=== PATIENT | female | born 1985 | race Caucasian/White ===

== ENCOUNTER 2017-09-18 19:50 | Emergency (ER) | payer MEDICAID ==
[2017-09-18] MEDS: ACETAMINOPHEN 500 MG TAB PO (22:34)
[2017-09-18] MEDS: ONDANSETRON (ODT) 4 MG TAB ODT (22:34)
[2017-09-18 22:52] LABS: ADD MAN DIFF? NO
[2017-09-18 22:53] LABS: WHITE BLOOD COUNT 5.5 10^3/ul (4.8-10.8)
[2017-09-18 22:53] LABS: BASOPHILS % 0.2 % (0.0-2.0); HEMATOCRIT 40.1 % (37.0-47.0); HEMOGLOBIN 13.2 g/dl (12.0-16.0); LYMPHOCYTES # 1.2 10^3/ul (0.8-2.9); LYMPHOCYTES % 22.4 % (15.0-51.0); MEAN CORPUSCULAR HEMOGLOBIN 25.7 pg (29.0-33.0); MEAN CORPUSCULAR HGB CONC 32.9 g/dl (32.0-37.0); MEAN PLATELET VOLUME 10.9 fl (7.4-10.4); MONOCYTE # 0.3 10^3/ul (0.3-0.9); MONOCYTES % 4.7 % (0.0-11.0); NEUTROPHILS % 72.5 % (39.0-77.0); PLATELET COUNT 186 10^3/UL (140-415); RED BLOOD COUNT 5.14 10^6/ul (4.20-5.40); RED CELL DISTRIBUTION WIDTH 15.6 % (11.5-14.5)
[2017-09-18 23:25] LABS: ALANINE AMINOTRANSFERASE 58 IU/L (13-69); ALBUMIN 4.6 g/dl (3.3-4.9); ALBUMIN/GLOBULIN RATIO 1.35; ALKALINE PHOSPHATASE 85 IU/L (42-121); AMYLASE 59 U/L (11-123); ANION GAP 19 (8-16); ASPARTATE AMINO TRANSFERASE 50 IU/L (15-46); BLOOD UREA NITROGEN 6 mg/dl (7-20); CALCIUM 8.3 mg/dl (8.4-10.2); CARBON DIOXIDE 22 mmol/L (21-31); CHLORIDE 98 mmol/L (97-110); CREATININE 0.64 mg/dl (0.44-1.00); GLUCOSE 118 mg/dl (70-220); LIPASE 95 U/L (23-300); POTASSIUM 3.6 mmol/L (3.5-5.1); SODIUM 135 mmol/L (135-144)
[2017-09-18 23:44] LABS: ADD UMIC YES; UR ASCORBIC ACID 20 mg/dL (NEGATIVE); UR BACTERIA FEW /HPF (NONE SEEN); UR BILIRUBIN (Dip) NEGATIVE (NEGATIVE); UR BLOOD (Dip) NEGATIVE (NEGATIVE); UR CLARITY SLIGHTLY CLOUDY (CLEAR); UR COLOR YELLOW (YELLOW); UR GLUCOSE (Dip) NEGATIVE (NEGATIVE); UR KETONES (Dip) 2+ mg/dL (NEGATIVE); UR LEUKOCYTE ESTERASE (Dip) TRACE Leu/ul (NEGATIVE); UR NITRITE (Dip) NEGATIVE (NEGATIVE); UR RBC 20 /HPF (0-5); UR SPECIFIC GRAVITY (Dip) 1.019 (1.003-1.030); UR SQUAMOUS EPITHELIAL CELL FEW /HPF (FEW); UR TOTAL PROTEIN (Dip) 2+ mg/dl (NEGATIVE); UR UROBILINOGEN (Dip) 1+ mg/dL (NEGATIVE); UR WBC 3 /HPF (0-5)
== END 2017-09-19 01:10 | disposition home or self-care (01) ==
LOC: FTE 09-19 01:10
DX: J18.9 Pneumonia, unspecified organism (principal); K80.20 Calculus of gallbladder without cholecystitis without obstruction; F17.210 Nicotine dependence, cigarettes, uncomplicated
CPT/HCPCS: 71046; 76705; 80053; 81001; 82150; 83690; 85025; 87086; 87400; 99285-25

== ENCOUNTER 2018-05-04 23:34 | Emergency (ER) | payer OTHER, MEDICAID ==
[2018-05-05 03:55] LABS: ADD UMIC YES; UR ASCORBIC ACID NEGATIVE (NEGATIVE); UR BACTERIA FEW /HPF (NONE SEEN); UR BILIRUBIN (Dip) NEGATIVE (NEGATIVE); UR BLOOD (Dip) 3+ mg/dL (NEGATIVE); UR CLARITY CLEAR (CLEAR); UR COLOR YELLOW (YELLOW); UR GLUCOSE (Dip) NEGATIVE (NEGATIVE); UR KETONES (Dip) NEGATIVE (NEGATIVE); UR LEUKOCYTE ESTERASE (Dip) TRACE Leu/ul (NEGATIVE); UR NITRITE (Dip) NEGATIVE (NEGATIVE); UR RBC 3 /HPF (0-5); UR SPECIFIC GRAVITY (Dip) 1.013 (1.003-1.030); UR SQUAMOUS EPITHELIAL CELL FEW /HPF (FEW); UR TOTAL PROTEIN (Dip) NEGATIVE (NEGATIVE); UR UROBILINOGEN (Dip) NEGATIVE (NEGATIVE); UR WBC 1 /HPF (0-5)
[2018-05-05 04:15] LABS: HEMATOCRIT 34.2 % (37.0-47.0); HEMOGLOBIN 10.7 g/dl (12.0-16.0); MEAN CORPUSCULAR HEMOGLOBIN 24.2 pg (29.0-33.0); MEAN CORPUSCULAR HGB CONC 31.3 g/dl (32.0-37.0); MEAN CORPUSCULAR VOLUME 77.2 fl (82.0-101.0); MEAN PLATELET VOLUME 12.1 fl (7.4-10.4); RED BLOOD COUNT 4.43 10^6/ul (4.20-5.40); RED CELL DISTRIBUTION WIDTH 16.7 % (11.5-14.5)
[2018-05-05 04:15] LABS: WHITE BLOOD COUNT 13.4 10^3/ul (4.8-10.8)
[2018-05-05 04:43] LABS: PLATELET COUNT 235 10^3/UL (140-415); POSITIVE DIFF @See below
[2018-05-05 04:49] LABS: ADD MAN DIFF? YES
[2018-05-05 06:05] LABS: ANISOCYTOSIS 1+ (0-0); BAND NEUTROPHILS #M 0.1 10^3/ul (0.0-0.6); BAND NEUTROPHILS % (M) 1 % (0-4); EOSINOPHILS % (M) 4 % (0-7); GIANT THROMBO% (M) 1 % (0-0); LYMPHOCYTES #M 4.4 10^3/ul (0.8-2.9); LYMPHOCYTES % (M) 33 % (15-51); MICROCYTOSIS 1+ (0-0); MONOCYTE #M 0.8 10^3/ul (0.3-0.9); MONOCYTES % (M) 6 % (0-11); PLATELET ESTIMATE NORMAL; POIKILOCYTOSIS 2+ (0-0); SEG NEUT #M 7.5 10^3/ul (1.6-7.5); SEGMENTED NEUTROPHILS (M) % 56 % (39-77); SMUDGE%M 70 % (0-0)
== END 2018-05-05 05:07 | disposition home or self-care (01) ==
LOC: FTE 23:34
DX: O20.9 Hemorrhage in early pregnancy, unspecified (principal); R10.2 Pelvic and perineal pain; F17.210 Nicotine dependence, cigarettes, uncomplicated; O99.331 Smoking (tobacco) complicating pregnancy, first trimester; O10.011 Pre-existing essential hypertension complicating pregnancy, first trimester; Z3A.01 Less than 8 weeks gestation of pregnancy
CPT/HCPCS: 36415; 76801; 81001; 84702; 85025; 86900; 86901; 99284-25

== ENCOUNTER 2018-10-28 10:16 | Outpatient (CLI) | payer OTHER ==
[2018-10-28 11:50] LABS: ADD MAN DIFF? NO
[2018-10-28 11:53] LABS: BASOPHILS % 0.3 % (0.0-2.0); EOSINOPHILS # 0.1 10^3/ul (0.0-0.5); HEMOGLOBIN 11.6 g/dl (12.0-16.0); LYMPHOCYTES # 2.1 10^3/ul (0.8-2.9); MEAN CORPUSCULAR HEMOGLOBIN 25.6 pg (29.0-33.0); MEAN CORPUSCULAR HGB CONC 32.2 g/dl (32.0-37.0); MEAN CORPUSCULAR VOLUME 79.3 fl (82.0-101.0); MEAN PLATELET VOLUME 10.4 fl (7.4-10.4); MONOCYTE # 0.6 10^3/ul (0.3-0.9); MONOCYTES % 4.9 % (0.0-11.0); NEUTROPHILS % 76.6 % (39.0-77.0); PLATELET COUNT 301 10^3/UL (140-415); RED BLOOD COUNT 4.54 10^6/ul (4.20-5.40); RED CELL DISTRIBUTION WIDTH 15.9 % (11.5-14.5)
[2018-10-28 12:10] LABS: ALANINE AMINOTRANSFERASE 10 IU/L (13-69); ALBUMIN 3.9 g/dl (3.3-4.9); ALBUMIN/GLOBULIN RATIO 1.14; ALKALINE PHOSPHATASE 99 IU/L (42-121); ANION GAP 7 (5-13); ASPARTATE AMINO TRANSFERASE 18 IU/L (15-46); BLOOD UREA NITROGEN 7 mg/dl (7-20); CALCIUM 9.2 mg/dl (8.4-10.2); CARBON DIOXIDE 26 mmol/L (21-31); CHLORIDE 103 mmol/L (97-110); CREATININE 0.55 mg/dl (0.44-1.00); Estimated GFR > 60 mL/min (>60); GLUCOSE 95 mg/dl (70-220); POTASSIUM 3.5 mmol/L (3.5-5.1); SODIUM 136 mmol/L (135-144); TOTAL PROTEIN 7.3 g/dl (6.1-8.1)
[2018-10-28 12:14] LABS: INR 0.89; PROTIME 12.1 Sec (11.9-14.9); PT RATIO 0.9
[2018-10-28 12:15] LABS: PARTIAL THROMBOPLASTIN TIME 24.3 Sec (23.0-35.0)
[2018-10-28 12:16] LABS: ADD UMIC YES; UR ASCORBIC ACID NEGATIVE (NEGATIVE); UR BACTERIA FEW /HPF (NONE SEEN); UR BILIRUBIN (Dip) NEGATIVE (NEGATIVE); UR BLOOD (Dip) NEGATIVE (NEGATIVE); UR CLARITY SLIGHTLY CLOUDY (CLEAR); UR COLOR YELLOW (YELLOW); UR GLUCOSE (Dip) NEGATIVE (NEGATIVE); UR KETONES (Dip) NEGATIVE (NEGATIVE); UR LEUKOCYTE ESTERASE (Dip) 3+ Leu/ul (NEGATIVE); UR MUCUS FEW /HPF (NONE SEEN); UR NITRITE (Dip) NEGATIVE (NEGATIVE); UR RBC 15 /HPF (0-5); UR SPECIFIC GRAVITY (Dip) 1.018 (1.003-1.030); UR SQUAMOUS EPITHELIAL CELL MANY /HPF (FEW); UR TOTAL PROTEIN (Dip) NEGATIVE (NEGATIVE); UR UROBILINOGEN (Dip) 1+ mg/dL (NEGATIVE); UR WBC 3 /HPF (0-5)
[2018-10-28 12:24] LABS: URIC ACID 3.4 mg/dl (3.1-7.9)
== END 2018-10-28 13:30 | disposition home or self-care (01) ==
LOC: OBT 10:16 → L-D 12:00 → OBT 13:30
DX: O13.3 Gestational [pregnancy-induced] hypertension without significant proteinuria, third trimester (principal); Z3A.37 37 weeks gestation of pregnancy
CPT/HCPCS: 76818; 80053; 81001; 84560; 85025; 85384; 85610; 85730

== ENCOUNTER 2018-12-14 09:38 | Inpatient (IN) | payer OTHER ==
[2018-12-14] MEDS ORDERED: METHYLERGONOVINE 0.2 MG INJ IM (10:30)
[2018-12-14] MEDS ORDERED: OXYTOCIN 30 UNITS/LR 500 ML IV (10:30)
[2018-12-14] MEDS: MINERAL OIL LIGHT 10 ML VIAL TOP (10:30)
[2018-12-14] MEDS ORDERED: BUTORPHANOL 2 MG INJ IV (10:30)
[2018-12-14] MEDS ORDERED: LIDOCAINE 1% (MPF) 30 ML INJ INJ (10:30)
[2018-12-14] MEDS ORDERED: CARBOPROST 250 MCG INJ IM (10:30)
[2018-12-14 10:49] LABS: ADD MAN DIFF? NO
[2018-12-14 11:01] LABS: BASOPHILS % 0.3 % (0.0-2.0); EOSINOPHILS # 0.1 10^3/ul (0.0-0.5); EOSINOPHILS % 0.7 % (0.0-7.0); HEMATOCRIT 34.3 % (37.0-47.0); HEMOGLOBIN 11.1 g/dl (12.0-16.0); LYMPHOCYTES # 1.7 10^3/ul (0.8-2.9); LYMPHOCYTES % 15.8 % (15.0-51.0); MEAN CORPUSCULAR HEMOGLOBIN 24.9 pg (29.0-33.0); MEAN CORPUSCULAR HGB CONC 32.4 g/dl (32.0-37.0); MEAN CORPUSCULAR VOLUME 76.9 fl (82.0-101.0); MEAN PLATELET VOLUME 10.7 fl (7.4-10.4); MONOCYTE # 0.6 10^3/ul (0.3-0.9); NEUTROPHIL # 8.1 10^3/ul (1.6-7.5); NEUTROPHILS % 76.8 % (39.0-77.0); PLATELET COUNT 267 10^3/UL (140-415); RED BLOOD COUNT 4.46 10^6/ul (4.20-5.40); RED CELL DISTRIBUTION WIDTH 16.6 % (11.5-14.5)
[2018-12-14 11:01] LABS: WHITE BLOOD COUNT 10.5 10^3/ul (4.8-10.8)
[2018-12-14] MEDS: LACTATED RINGER'S 1,000 ML IV ×4 (11:02→22:46)
[2018-12-14] MEDS: AMPICILLIN 2 GM/NS (PMX) 100 ML IV (11:09)
[2018-12-14 11:20] LABS: INR 0.83; PROTIME 11.5 Sec (11.9-14.9); PT RATIO 0.9
[2018-12-14 11:21] LABS: PARTIAL THROMBOPLASTIN TIME 23.8 Sec (23.0-35.0)
[2018-12-14] MEDS: OXYTOCIN 30 UNITS/LR 500 ML IV (12:00)
[2018-12-14 12:03] LABS: HEPATITIS B SURFACE ANTIGEN NEGATIVE (NEGATIVE)
[2018-12-14] MEDS ORDERED: FENTAnyl 2MCG/ML-ROPIV 0.2% 100 ML (14:45)
[2018-12-14 14:56] LABS: RAPID PLASMA REAGIN NONREACTIVE (NR)
[2018-12-14] MEDS ORDERED: HYDROmorphONE 0.5 MG/0.5 ML SYG IV ×2 (15:00)
[2018-12-14] MEDS ORDERED: NALOXONE (0.4 MG/ML) INJ IV (15:00)
[2018-12-14] MEDS ORDERED: ZOLPIDEM 5 MG TAB PO (15:00)
[2018-12-14] MEDS ORDERED: ONDANSETRON 4 MG INJ IV (15:00)
[2018-12-14] MEDS ORDERED: KETOROLAC 30 MG INJ IV (15:00)
[2018-12-14] MEDS ORDERED: DIPHENHYDRAMINE 50 MG INJ IV (15:00)
[2018-12-14] MEDS: AMPICILLIN 1 GM/NS (PMX) 50 ML IV ×3 (15:37→22:46)
[2018-12-15] MEDS: FENTAnyl 2MCG/ML-ROPIV 0.2% 100 ML BAG EPI ×2 (02:30)
[2018-12-15] MEDS: AMPICILLIN 1 GM/NS (PMX) 50 ML IV ×3 (03:02→10:30)
[2018-12-15] MEDS: LACTATED RINGER'S 1,000 ML IV (06:21)
[2018-12-15] MEDS: MISOPROSTOL 200 MCG TAB PR (09:18)
[2018-12-15] MEDS: OXYTOCIN 30 UNITS/LR 500 ML IV ×2 (09:19→09:20)
[2018-12-15] MEDS: IBUPROFEN 600 MG TAB PO ×4 (10:17→23:51)
[2018-12-15] MEDS ORDERED: ACETAMINOPHEN 325 MG TAB PO (12:00)
[2018-12-15] MEDS ORDERED: OXYTOCIN 30 UNITS/LR 500 ML IV (12:00)
[2018-12-15] MEDS ORDERED: DIPHENHYDRAMINE 50 MG INJ IV (12:00)
[2018-12-15] MEDS ORDERED: ONDANSETRON 4 MG INJ IV (12:00)
[2018-12-15] MEDS ORDERED: DIBUCAINE 1% 30 GM OINT TOP (12:00)
[2018-12-15] MEDS ORDERED: METHYLERGONOVINE 0.2 MG INJ IM (12:00)
[2018-12-15] MEDS ORDERED: MISOPROSTOL 200 MCG TAB PR (12:00)
[2018-12-15] MEDS ORDERED: ZOLPIDEM 5 MG TAB PO (12:00)
[2018-12-15] MEDS ORDERED: LANOLIN HPA 1 PKT TOP (12:00)
[2018-12-15] MEDS ORDERED: CARBOPROST 250 MCG INJ IM (12:00)
[2018-12-15] MEDS ORDERED: SENNA/DOCUSATE NA (8.6MG/50MG) TAB PO (12:00)
[2018-12-15] MEDS: HYDROCODONE/APAP (5/325) TAB PO (12:48)
[2018-12-15] MEDS: BENZOCAINE 20% 56 ML SPRAY TOP (12:49)
[2018-12-15] MEDS: WITCH HAZEL/GLYCERIN PAD PR (12:49)
[2018-12-15] MEDS: LACTATED RINGER'S 1,000 ML IV* (12:50)
[2018-12-15] MEDS: CEPHALEXIN 500 MG CAP PO ×2 (18:49→23:51)
[2018-12-15] MEDS: OXYCODONE/ASPIRIN (4.88/325) TAB PO (23:56)
[2018-12-16] MEDS: CEPHALEXIN 500 MG CAP PO ×3 (05:52→20:31)
[2018-12-16] MEDS: IBUPROFEN 600 MG TAB PO ×3 (05:52→20:31)
[2018-12-16] MEDS: OXYCODONE/ASPIRIN (4.88/325) TAB PO ×2 (08:13→11:39)
[2018-12-16 08:49] LABS: ADD MAN DIFF? NO
[2018-12-16 08:52] LABS: WHITE BLOOD COUNT 12.7 10^3/ul (4.8-10.8)
[2018-12-16 08:52] LABS: BASOPHILS % 0.2 % (0.0-2.0); EOSINOPHILS # 0.1 10^3/ul (0.0-0.5); EOSINOPHILS % 1.1 % (0.0-7.0); HEMATOCRIT 29.2 % (37.0-47.0); HEMOGLOBIN 9.3 g/dl (12.0-16.0); LYMPHOCYTES # 2.2 10^3/ul (0.8-2.9); LYMPHOCYTES % 16.9 % (15.0-51.0); MEAN CORPUSCULAR HEMOGLOBIN 25.4 pg (29.0-33.0); MEAN CORPUSCULAR HGB CONC 31.8 g/dl (32.0-37.0); MEAN CORPUSCULAR VOLUME 79.8 fl (82.0-101.0); MONOCYTE # 0.6 10^3/ul (0.3-0.9); MONOCYTES % 4.4 % (0.0-11.0); NEUTROPHIL # 9.7 10^3/ul (1.6-7.5); NEUTROPHILS % 76.7 % (39.0-77.0); PLATELET COUNT 214 10^3/UL (140-415); RED BLOOD COUNT 3.66 10^6/ul (4.20-5.40); RED CELL DISTRIBUTION WIDTH 17.1 % (11.5-14.5)
[2018-12-16] MEDS: LACTATED RINGER'S 1,000 ML IV ×2 (20:26→21:08)
[2018-12-16] MEDS: DEXTROSE 5%-LR 1,000 ML IV ×2 (20:26→21:08)
[2018-12-16] MEDS: LACTATED RINGER'S 1,000 ML IV* ×3 (20:26→21:13)
[2018-12-17] MEDS: CEPHALEXIN 500 MG CAP PO ×3 (00:39→12:32)
[2018-12-17] MEDS: IBUPROFEN 600 MG TAB PO ×3 (00:40→12:32)
[2018-12-17] MEDS: LACTATED RINGER'S 1,000 ML IV* ×2 (03:57→11:57)
[2018-12-17] MEDS: OXYCODONE/ASPIRIN (4.88/325) TAB PO (08:26)
[2018-12-17 08:36] LABS: ADD MAN DIFF? NO
[2018-12-17 08:39] LABS: BASOPHILS % 0.2 % (0.0-2.0); EOSINOPHILS # 0.3 10^3/ul (0.0-0.5); EOSINOPHILS % 2.6 % (0.0-7.0); HEMOGLOBIN 9.6 g/dl (12.0-16.0); LYMPHOCYTES # 2.1 10^3/ul (0.8-2.9); LYMPHOCYTES % 21.3 % (15.0-51.0); MEAN CORPUSCULAR HEMOGLOBIN 25.1 pg (29.0-33.0); MEAN CORPUSCULAR VOLUME 78.3 fl (82.0-101.0); MEAN PLATELET VOLUME 10.7 fl (7.4-10.4); MONOCYTE # 0.5 10^3/ul (0.3-0.9); MONOCYTES % 5.1 % (0.0-11.0); NEUTROPHIL # 6.8 10^3/ul (1.6-7.5); PLATELET COUNT 213 10^3/UL (140-415); RED BLOOD COUNT 3.83 10^6/ul (4.20-5.40); RED CELL DISTRIBUTION WIDTH 16.4 % (11.5-14.5)
[2018-12-17 08:39] LABS: WHITE BLOOD COUNT 9.7 10^3/ul (4.8-10.8)
[2018-12-17] MEDS: MEASLES,MUMPS,RUBELLA VACCINE INJ SC* (09:00)
[2018-12-17] MEDS: DIPHTH/TET/ACEL PERTUSS (ADULT) 0.5 ML VIAL IM* (09:00)
== END 2018-12-17 18:22 | disposition home or self-care (01) | DRG 807 ==
LOC: L-D 09:38 → PP1 12-15 11:10
PROVIDERS: Obstetrics & Gynecology
PROC: 3E033VJ Introduction of Other Hormone into Peripheral Vein, Percutaneous Approach (ICD-10-PCS; 2018-12-14 09:00)
DX: O48.0 Post-term pregnancy (principal); Z37.0 Single live birth; Z3A.40 40 weeks gestation of pregnancy
CPT/HCPCS: 76815; 85025; 85610; 85730; 86592; 86850; 86900; 86901; 87340; 99464